=== PATIENT | female | born 1950 | race Caucasian/White ===

== ENCOUNTER 2017-04-15 15:24 | Inpatient (IN) | payer OTHER ==
[~2017-04-15] VITALS: Ht 162.6 cm; Wt 54.6 kg
--- NOTE | ~2017-04-15 | DS ---
Unit #: [id number] #: [id number] Patient: LUDIVINA MOCTEZUMA [id number] [address] [address] [id number] I MR#: [id number] NAME: LUDIVINA MOCTEZUMA ROOM: 319 Age: 66 Sex: F Admission Date: 04/15/2017 : 1950 Discharge Date: 04/20/2017 Attending Physician: Nicole Mancera M.D. Primary Care Physician: Helga Naranjo M.D. DISCHARGE SUMMARY PRINCIPAL DISCHARGE DIAGNOSES 1. Puybn-rm-ffrkxld diastolic congestive heart failure. Left ventricular ejection fraction 60%. 2. Chronic kidney disease stage 3. 3. 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 4. Hypertension, stable. 5. History of CVA. 6. History of depression. 7. Dementia. HOSPITAL COURSE This is a 66-year-old female with a history of multiple medical problems, admitted on 04/15/2017 with a chief complaint of increasing shortness of air, dyspnea, increasing left pleural effusions and herpes zoster. Chest x-ray showed left pleural effusion with a BNP above 200. She had some hypoxia with O2 saturation of 89%. The patient was jayme by the land survey technician and treated with the diuretics. She underwent the thoracocentesis and more than 500 cc of pleural fluid was drained. She has clinically improved and has been cleared by cardiology for discharge home. DISCHARGE CONDITION Stable. CONSULTANTS Cardiology, Dr. Barboza and Dr. Crowley. DISCHARGE MEDICATIONS 1. Zoloft 100 mg daily. 2. Amlodipine 10 mg daily. 3. Aricept 5 mg daily at bedtime. 4. Bumex 1 mg b.i.d. 5. Hydralazine 150 t.i.d. 6. Minoxidil 7.5 mg b.i.d. 7. Aspirin daily. 8. Isosorbide 60 mg p.o. every morning. 9. Home oxygen 2 liters per nasal cannula. 10. Famvir 500 mg b.i.d. DIAGNOSTIC DATA LABORATORY: On admission, creatinine 2.1. DISPOSITION Unit #: [id number] #: [id number] Patient: RHIANNA,LUDIVINA Home. Dictated by... Radha Acuña/iza TD: 04/21/2017 10:25 JOB #: [id number] DISCHARGE SUMMARY Page 1 of 1 X Crystal Calvert MD X DISCHARGE SUMMARY
--- NOTE | ~2017-04-15 | EKG ---
PATIENT: LUDIVINA MOCTEZUMA UNIT #: [id number] Ventricular Rate: 67 BPM Atrial Rate: 64 BPM QRS Duration: 84 ms Q-T Interval: 394 ms QTC Calculation(Bezet): 416 ms Calculated R [place]: -6 degrees Calculated T [place]: 133 degrees Diagnosis Line: Junctional rhythm Diagnosis Line: Nonspecific T wave abnormality Diagnosis Line: Abnormal ECG Diagnosis Line: When compared with ECG of 18-SEP-2016 14:22, Diagnosis Line: Junctional rhythm has replaced Normal sinus rhythm Diagnosis Line: Nonspecific T wave abnormality no longer evident Diagnosis Line: in Anterior leads Diagnosis Line: Confirmed by HILARY LIRA MD ([id number]) on 04/16/2017 Diagnosis Line: 12:10:26 AM INTERPRETING MD: SORAYA LOTT
--- NOTE | ~2017-04-15 | HP ---
Unit #: [id number] #: [id number] Patient: LUDIVINA MOCTEZUMA [id number] [address] [place], [place] [address] [id number] I MR#: [id number] NAME: LUDIVINA MOCTEZUMA ROOM: 319 Age: 66 Sex: F Admission Date: 04/15/2017 : 1950 Attending Physician: Lanette Oliva M.D. Primary Care Physician: Helga Naranjo M.D. HISTORY AND PHYSICAL CHIEF COMPLAINT Dyspnea on exertion with increasing left pleural effusion, herpes zoster. HISTORY This pleasant 66-year-old female with hypertension, previous CVA, is admitted for dyspnea on exertion. Family states that the patient has been experiencing dyspnea on exertion for the past three days, associated with increasing pedal edema. Has had similar episodes in the past secondary to apparent fluid overload. The patient denies significant cough with the above, fever, sweats and chills. She did experience some recent back pain and has a rash over the right thoracic dermatome. On examination she has evidence of herpes zoster, along with a right thoracic dermatome. Chest x-ray shows a left pleural effusion, with a BNP of about 200. The patient denies chest pain with the above. Her O2 saturation was 89% in the ER and oxygen was placed. PAST MEDICAL HISTORY 1. Essential hypertension with previous admissions for malignant hypertension. 2. Diet controlled AODM. 3. Hyperlipidemia. 4. Chronic kidney disease with a baseline creatinine of about 1.9, followed by Dr. Guevara. 5. 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 Patient has associated right-sided weakness and some memory loss. 6. Previous admissions to this facility for bradycardia, syncope. Bradycardia was in part related to previous clonidine. Patient was noted to have some pauses at that time. Also short runs of paroxysmal supraventricular tachycardia. Previous echo 06/2014 ejection fraction 55% with LVH, mild MR and TR. Lexiscan Cardiolite stress test 06/2014 was negative for ischemia. 7. Depression. 8. GERD. 9. Right shoulder surgery. 10. Hysterectomy for cervical cancer. ALLERGIES No known drug allergies. HOME MEDICATIONS Unit #: [id number] #: [id number] Patient: LUDIVINA MOCTEZUMA Zoloft 100 mg daily; Norvasc 10 mg daily; Aricept 5 mg daily; Bumex 1 mg b.i.d.; hydralazine 150 mg t.i.d.; minoxidil 5 mg b.i.d.; aspirin 81 mg daily; Protonix 40 mg daily; Imdur 60 mg daily. FAMILY HISTORY Lung cancer, CAD. SOCIAL HISTORY The patient lives with her brother and [id number]. Ambulates with a cane. Lifelong nonsmoker. Does not drink alcohol. REVIEW OF SYSTEMS Notable for some shortness of breath, previous stroke, hypertension, diet controlled diabetes, above mentioned surgeries, recent rash over the right back. All other systems were reviewed and otherwise negative. PHYSICAL EXAMINATION GENERAL: Very pleasant 66-year-old female currently in no acute distress. VITAL SIGNS: Temperature 98.3, pulse 74, respirations 18, O2 saturation was as low as 89% on room air. Initial blood pressure 183/78. Current blood pressure is 194/100. Pulse 74. HEENT: Eyes - PERRLA, extraocular muscles are intact. Pharynx is benign. NECK: Supple without adenopathy or thyromegaly. Elevated JVD noted. CHEST: Actually fairly clear. CARDIAC: Normal S1 and S2. Very soft systolic murmur heard upper sternal borders. ABDOMEN: Bowel sounds are present. No hepatosplenomegaly, tenderness or masses. EXTREMITIES: With 2+ bilateral pedal edema. Pedal pulses are present. There is a hammertoe second toe on the right with abrasion on the top but otherwise no ulcers on the feet. SKIN: Reveals herpes zoster along the right thoracic dermatome. NEUROLOGIC: Patient is awake, alert. She is very oriented. Cranial nerves are intact. Equal strength throughout. DIAGNOSTIC STUDIES ADMISSION LABS: Hematocrit is 34, which is improved. MCV 79, normal white count and platelet count. SMA 12 - glucose 114, BUN 33, creatinine was 1.9 in September as well. Protein is 9.1. BNP 197. Cardiac markers are negative. IMAGING STUDIES: Chest x-ray - new left lower lobe, left chest pleural effusion, possible infiltrate. X-ray of the right foot, soft tissue swelling, DJD of the second toe right foot. CARDIOLOGY STUDIES: EKG - sinus rhythm, rate 67, nonspecific ST wave flattening. ASSESSMENT 1. Dyspnea on exertion with history of fluid overload, patient now presents with new left pleural effusion. 2. Her previous echo 06/2014, mild MR, mild TR, ejection fraction 55% with LVH. 3. Accelerated hypertension. 4. Right-sided herpes zoster. 5. Previous cerebrovascular accident with some memory issues. Unit #: [id number] #: [id number] Patient: LUDIVINA MOCTEZUMA 6. Diet control adult onset diabetes mellitus. 7. Gastroesophageal reflux disease. 8. Stable chronic kidney disease. 9. Anemia secondary to chronic kidney disease. PLANS 1. Will give patient her blood pressure medicines now and monitor blood pressure. 2. IV Bumex, cardiology to see and repeat cardiac enzymes. 3. CT scan of the chest in the morning. If pleural effusion is not responding to diuretics, may need a thoracentesis with analysis of fluid. 4. Start Famvir. 5. DVT prophylaxis. Dictated by Radha Wolfe/ts TD: 04/16/2017 05:00 JOB #: [id number] HISTORY AND PHYSICAL Page 1 of 1 X Lanette Oliva MD HISTORY AND PHYSICAL
--- NOTE | ~2017-04-15 | US77 ---
[facility] A Service of [facility] RADIOLOGY TEXT RESULTS PATIENT: LUDIVINA MOCTEZUMA LOCATION: [facility] : [birth year] UNIT #: [id number] AGE: [address]: Nicole Mancera MD SEX: F ORDER DR: [id number] [facility] [address]. [place], [place] [address] [id number] I MR#: [id number] Acc #: [id number] NAME: LUDIVINA MOCTEZUMA : 1950 SEX: F STUDY DATE/TIME: 04/18/2017 16:43 UNIT: [address] ROOM: [facility] STUDY DESCRIPTION: US Kidney Bilateral Complete Attending Physician: Nicole Mancera M.D. Ordering Physician: Naima Marx A.P.R.N. Primary Care Physician: Helga Naranjo M.D. MEDICAL IMAGING REPORT This report is preliminary unless electronic signature is present EXAM Renal ultrasound. INDICATIONS Recurrent urinary tract infection. Hypertension. Diabetes. Renal mass. TECHNIQUE Renal ultrasound. COMPARISON CT chest dated 04/16/2017. FINDINGS The right kidney means 8.5 cm. There is increased echogenicity of the renal cortex consistent with chronic medical renal disease. There is a complex cyst off the mid to lower pole right kidney measuring up to 2.6 cm. This has some low-level internal echo suggesting a proteinaceous or hemorrhagic cyst. There is no hydronephrosis. The left kidney measures 9.3 cm. The lesion in the superior pole of the right kidney identified on the recent CT scan is not well identified. There is a small cyst in the lower pole left kidney. There is generalized increased echogenicity of the renal cortex suggesting chronic medical renal disease. No hydronephrosis. The bladder is unremarkable. There are bilateral pleural effusions. IMPRESSION 1. Chronic medical renal disease. 2. Cystic mass in the mid to lower right kidney with low-level internal [facility] A Service of [facility] RADIOLOGY TEXT RESULTS PATIENT: LUDIVINA MOCTEZUMA LOCATION: [facility] : [birth year] UNIT #: [id number] AGE: [address]: Nicole Mancera MD SEX: F ORDER DR: ivett. This suggests a proteinaceous or hemorrhagic cyst. I would recommend this be followed with a renal protocol CT or MRI to confirm. 3. The partially exophytic mass described on the recent CT scan of the chest is not clearly identified on this renal ultrasound. This would also be better evaluated with a renal protocol CT or MRI. 4. No hydronephrosis. Dictated by... Bishnu Soto M.D. THIS IS AN ELECTRONICALLY VERIFIED REPORT Bishnu Soto M.D. at 04/19/2017 3:54 PM TONYA/nikolay TD: 04/19/2017 12:06 JOB #: [id number] MEDICAL IMAGING REPORT Page 1 of 1 COPY
--- NOTE | ~2017-04-15 | CR71 ---
[facility] A Service of [facility] RADIOLOGY TEXT RESULTS PATIENT: LUDIVINA MOCTEZUMA LOCATION: [facility] 319-01 : [birth year] UNIT #: [id number] AGE: [address]: Nicole Mancera MD SEX: F ORDER DR: [id number] [facility] [address]. [place], [place] [address] [id number] I MR#: [id number] Acc #: [id number] NAME: LUDIVINA MOCTEZUMA : 1950 SEX: F STUDY DATE/TIME: 04/18/2017 11:45 UNIT: [address] ROOM: [facility] STUDY DESCRIPTION: CR Chest Single View Attending Physician: Nicole Mancera M.D. Ordering Physician: Hamzah Bowen M.D. Primary Care Physician: Helga Naranjo M.D. MEDICAL IMAGING REPORT This report is preliminary unless electronic signature is present EXAM Portable chest. HISTORY Post thoracentesis, left-sided. Shortness of air. Onset today. COMPARISON 04/18/2017 FINDINGS AP portable view of the chest demonstrates improved left-sided lung volumes following thoracentesis. There is continued loss of the left hemidiaphragm and blunting of the left CP angle suggesting some residual fluid. Interface is seen overlying the left upper chest, probably represents a skin, underlying pleural reflection considered less likely as there appear to be lung markings extending beyond the expected projection. Repeat radiograph may be warranted to exclude underlying pneumothorax. Mild pulmonary vascular congestion. Continued cardiomegaly and small right pleural effusion. Arthroplasty changes noted right shoulder. Dictated by... Elizabeth Talbert M.D. THIS IS AN ELECTRONICALLY VERIFIED REPORT Elizabeth Talbert M.D. at 04/21/2017 4:50 PM HAYLEE/yaz TD: 04/18/2017 17:21 JOB #: [id number] MEDICAL IMAGING REPORT [facility] A Service of [facility] RADIOLOGY TEXT RESULTS PATIENT: LUDIVINA MOCTEZUMA LOCATION: A 319-01 : [birth year] UNIT #: [id number] AGE: [address]: Nicole Mancera MD SEX: F ORDER DR: Page 1 of 1 COPY
--- NOTE | ~2017-04-15 | EKG ---
PATIENT: LUDIVINA MOCTEZUMA UNIT #: [id number] Ventricular Rate: 73 BPM Atrial Rate: 70 BPM QRS Duration: 84 ms Q-T Interval: 366 ms QTC Calculation(Bezet): 403 ms Calculated T [place]: 132 degrees Diagnosis Line: Normal sinus rhythm with frequent Premature atrial Diagnosis Line: complexes Diagnosis Line: Nonspecific T wave abnormality , probably Diagnosis Line: digitalis effect Diagnosis Line: Abnormal ECG Diagnosis Line: When compared with ECG of 15-APR-2017 18:25, Diagnosis Line: No significant change was found Diagnosis Line: Confirmed by HILARY LIRA MD ([id number]) on 04/17/2017 Diagnosis Line: 7:19:57 PM INTERPRETING MD: SORAYA LOTT
--- NOTE | ~2017-04-15 | CR72 ---
[facility] A Service of [facility] RADIOLOGY TEXT RESULTS PATIENT: LUDIVINA MOCTEZUMA LOCATION: [facility] 319-01 : [birth year] UNIT #: [id number] AGE: [address]: Nicole Mancera MD SEX: F ORDER DR: [id number] [facility] [address] [place], [place] [address] [id number] I MR#: [id number] Acc #: [id number] NAME: LUDIVINA MOCTEZUMA : 1950 SEX: F STUDY DATE/TIME: 04/15/2017 18:25 [facility] STUDY DESCRIPTION: CR Chest Single View Portable Attending Physician: Lanette Oliva M.D. Ordering Physician: Juan Singh D.O. Primary Care Physician: Helga Naranjo M.D. MEDICAL IMAGING REPORT This report is preliminary unless electronic signature is present EXAM Single view of the chest dated 04/15/17. COMPARISON Chest, 2 views, dated 11/13/16. HISTORY Shortness of air for 5 days, history of cervical cancer. High blood pressure and diabetes with CHF. FINDINGS Frontal view of the chest was obtained. Opacities noted in the left lower to mid chest suggestive of pleural effusion with underlying infiltrates. It is new when compared to the prior study. Previously noted right-sided pleural effusion has improved, but there is still patchy opacity extending from the region of the right hilum to the right lower lung zone suggestive of infiltrate and alveolar disease. Followup is suggested to ensure complete resolution and to exclude underlying mass. No new pneumothorax. Postoperative changes are noted in the right shoulder with hardware. Dictated by... Manny Castro M.D. THIS IS AN ELECTRONICALLY VERIFIED REPORT Manny Castro M.D. at 04/16/2017 3:28 PM CPR/pc TD: 04/16/2017 06:57 JOB #: [id number] [facility] A Service of [facility] RADIOLOGY TEXT RESULTS PATIENT: LUDIVINA MOCTEZUMA LOCATION: [facility] 319-01 : [birth year] UNIT #: [id number] AGE: [address]: Nicole Mancera MD SEX: F ORDER DR: MEDICAL IMAGING REPORT Page 1 of 1 COPY
--- NOTE | ~2017-04-15 | CT57 ---
[facility] A Service of [facility] RADIOLOGY TEXT RESULTS PATIENT: LUDIVINA MOCTEZUMA LOCATION: [facility] 319-01 : [birth year] UNIT #: [id number] AGE: [address]: Nicole Mancera MD SEX: F ORDER DR: [id number] [facility] [address] [place], [place] [address] [id number] I MR#: [id number] Acc #: [id number] NAME: LUDIVINA MOCTEZUMA : 1950 SEX: F STUDY DATE/TIME: 04/16/2017 0754 UNIT: [address] ROOM: [facility] STUDY DESCRIPTION: CT Chest Wo Cont Attending Physician: Nicole Mancera M.D. Ordering Physician: Lanette Oliva M.D. Primary Care Physician: Helga Naranjo M.D. MEDICAL IMAGING REPORT This report is preliminary unless electronic signature is present EXAM CT chest without contrast, 04/16/2017, 0754 hours. CLINICAL HISTORY Shortness of air for 3 days. Pleural effusion for [address] 12/25/2014 and chest x-ray 04/15/2017. TECHNIQUE Helical noncontrasted images were obtained from the thoracic inlet through the adrenal glands. Sagittal and coronal reconstructions were performed. Total exam DLP 370 mGy-cm. This CT exam was performed with one or more of the following radiation dose reduction techniques: automatic exposure control, adjustment of mA and/or kV according to patient size, and iterative reconstruction. FINDINGS Images through the thoracic inlet are degraded by streak artifact from hardware at the right shoulder. No definite thyroid lesion is seen. There are multiple small bilateral axillary nodes present increased from the prior exam. Images through the chest demonstrate some motion artifact. There is trace pericardial effusion, moderate bilateral pleural effusions which are new from CT 12/25/2014. Patient did have right pleural effusion on chest x-ray 11/13/2016 and bilateral effusions on chest x-ray 04/15/2017. There is no definite pathologic adenopathy although multiple small nodes are seen which are likely reactive. The lungs demonstrate an element of underlying emphysema without large blebs or bullae. There is airspace density with air bronchogram in the STS. [facility] A Service of [facility] RADIOLOGY TEXT RESULTS PATIENT: LUDIVINA MOCTEZUMA LOCATION: [facility] 319-01 : [birth year] UNIT #: [id number] AGE: [address]: Nicole Mancera MD SEX: F ORDER DR: right middle lobe and the right lower lobe which could represent atelectasis or pneumonia. There is dense consolidation of the left lower lobe with air bronchograms adjacent to the pleural effusion. Again, this could represent pneumonia or atelectasis. There is minimal involvement of the lingular segment of the left upper lobe. Limited views through the upper abdomen demonstrate no discrete liver or adrenal lesion. There is a heterogeneous lesion in the upper pole left kidney which is not clearly a simple cyst. This measures up to 1.9 cm with density measurement of 41 Hounsfield units while the adjacent normal noncontrasted renal parenchyma measures 26 Hounsfield units. This is possibly a hyperdense cyst or a solid very cellular mass. The size is similar to 12/25/2014, however, the density has increased. Consider followup renal ultrasound due to the change in appearance. IMPRESSION 1. There are moderate bilateral pleural effusions, left greater than right. The finding on the left is new compared to chest x-ray 11/13/2016. The finding on the right is similar to 11/13/2016. There is patchy airspace change in the right midlung and right lung base with dense airspace change in the left lower lobe with minimal involvement of the lingular segment left upper lobe. These findings could represent multifocal pneumonia or atelectasis. 2. There are multiple small lymph nodes in the right greater than left axilla and in the mediastinum. These are not pathologically enlarged but are increased compared to prior CT from 2014. Benign reactive nodes are favored. 3. There is a 1.9 cm lesion in the upper pole left kidney similar in size to prior CT from 2014, however, the density is increased of 41 Hounsfield units. This could represent a hemorrhagic or proteinaceous cyst. A small renal cell carcinoma cannot be excluded. I would suggest reassessment with a renal ultrasound as the next first step. Dictated by... Altagracia Sr M.D. THIS IS AN ELECTRONICALLY VERIFIED REPORT Altagracia Sr M.D. at 04/16/2017 8:26 PM ELIZABETH/yaz TD: 04/16/2017 14:30 JOB #: [id number] MEDICAL IMAGING REPORT Page 1 of 1 COPY
--- NOTE | ~2017-04-15 | CO ---
Unit #: [id number] #: [id number] Patient: LUDIVINA MOCTEZUMA [id number] [address] [place], [place] [address] [id number] I MR#: [id number] NAME: LUDIVINA MOCTEZUMA ROOM: 319 Age: 66 Sex: F Admission Date: 04/15/2017 : 1950 Attending Physician: Nicole Mancera M.D. Primary Care Physician: Helga Seymour M.D. CONSULTATION REPORT JOB NOTE: CC: DR. SEYMOUR. REASON FOR CONSULTATION Dyspnea. HISTORY OF PRESENT ILLNESS This is a 66-year-old white female, who is well known to Dr. Crowley, who has a history of hypertension, hyperlipidemia, and diabetes. She is known to have chronic kidney disease, her baseline creatinine is 1.9. The patient comes to the emergency room with a complaint of shortness of breath and lower extremity edema apparently for the past 2 days. She is a poor historian, and information has been obtained from the patient and her brother, who is at bedside. She reports dyspnea that mostly occurs while she exercise. Her brother says she walks around the house unassisted for exercise on a daily basis. He noted her to be short of breath. She denies paroxysmal nocturnal dyspnea or orthopnea. No fever or chills. No cough. She came to the emergency room for evaluation, where her BNP was elevated at 197. Chest x-ray shows left lower and mid pleural effusion with underlying infiltrate. She was hypertensive on admission, where her blood pressure was 198/72 mmHg. She was treated with hydralazine, minoxidil and started on intravenous Bumex. She denies any symptoms of angina. Reports occasional palpitations. No dizziness. Troponin initially mildly elevated at 0.05. There were no acute EKG changes. The patient is unable to tolerate beta-trudy, because of significant bradycardia. She has not been on AZIZA inhibitor or ARB, because of worsening renal function. PAST MEDICAL HISTORY 1. 2D echocardiogram on 07/28/2016 showed an ejection fraction of 60% to 65% with trace mitral regurgitation, trace tricuspid regurgitation. There was a pseudonormalization with grade 2 diastolic dysfunction. 2. Lexiscan Cardiolite stress test on 06/30/2014 showed an ejection fraction of 57% with no ischemia or infarct. 3. Hypertension. 4. Hyperlipidemia. 5. Diabetes mellitus, type 2. 6. 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 (No thrombus/PFO on TRU done at [facility]). 7. Dementia. 8. Cervical cancer. 9. Nonsmoker. 10. Chronic kidney disease. PAST SURGICAL HISTORY Unit #: [id number] #: [id number] Patient: LUDIVINA MOCTEZUMA 1. Hysterectomy. 2. Right shoulder surgery. SOCIAL HISTORY The patient lives with her brother, who assists her with her care. She has never smoked. Exercises on a regular basis. No illicit drug or alcohol use. FAMILY HISTORY Brother has coronary artery disease with history of stent placement at age 65. ALLERGIES No known drug allergies. HOME MEDICATIONS Zoloft 100 mg daily, Norvasc 10 mg daily, Aricept 5 mg q.h.s., Bumex 2 mg daily, hydralazine 150 mg t.i.d., minoxidil 5 mg b.i.d., aspirin 80 mg daily, Imdur 60 mg daily. REVIEW OF SYSTEMS CONSTITUTIONAL: Negative for fever or chills. Has no weight gain or weight loss. Denies fatigue or weakness. HEENT: No headache, hearing or vision changes, or difficulty with swallowing. No dizziness. CARDIOVASCULAR: Has no symptoms of angina. Reports occasional palpitations. No paroxysmal nocturnal dyspnea or orthopnea. No syncope or near syncope. RESPIRATORY: Positive for dyspnea that mostly occurs on exertion. Denies cough or hemoptysis. GASTROINTESTINAL: No abdominal pain, nausea, or vomiting. No constipation or melena. EXTREMITIES: Positive for lower extremity edema. PHYSICAL EXAMINATION VITAL SIGNS: Blood pressure 192/80, heart rate 82, temperature 98.7. BMI of 22. GENERAL: This is a very pleasant 66-year-old white female, who is in no acute distress. NEUROLOGIC: She is awake, alert, and oriented. Noted for forgetfulness. There is mild left-sided weakness. NECK: Trachea is midline. No thyromegaly or lymphadenopathy. No jugular venous distention. HEART: S1 and S2. Heart sounds are normal. No murmurs. No rubs or clicks. Regular rate and rhythm with occasional ectopic beat. LUNGS: With diminished breath sounds at both lung bases, left greater than the right. ABDOMEN: Soft and nontender with bowel sounds present. No organomegaly. EXTREMITIES: With palpable pedal pulses. No leg edema. SKIN: Warm and dry. DIAGNOSTIC STUDIES LABORATORY RESULTS: Glucose 106, BUN 31, creatinine 1.9, sodium 138, potassium 3.4. CK total 106, MB 3.0, MB index 2.8, troponin less than 0.05. BNP 197. White count is 4.9, hemoglobin is 9.6, hematocrit 29.7, and platelet count 308. IMAGING STUDIES: Chest x-ray shows left lower to mid chest opaque density Unit #: [id number] #: [id number] Patient: LUDIVINA MOCTEZUMA suggestive of pleural effusion with underlying infiltrates. There are some patchy opaque densities in the right hilum into the right lower lobe suggestive of infiltrate or alveolar disease. CARDIOVASCULAR STUDIES: EKG shows junctional rhythm with premature atrial complexes, rate of 67 beats per minute with nonspecific ST-wave abnormality. IMPRESSION 1. Left pleural effusion. 2. Hypertensive urgency. 3. Acute on chronic diastolic heart failure. 4. Hyperlipidemia. 5. Diabetes mellitus, type 2. 6. History of cerebrovascular accident. 7. Chronic kidney disease. PLAN 1. Cardiology was consulted for evaluation of dyspnea. We will continue to gently diurese the patient with IV diuretics. 2. We will optimize blood pressure medications. 3. No further cardiac workup is needed at this time. Thank you for allowing us to assist with this patient's care. Dictated by... Alma Minor/bradley TD: 04/17/2017 05:40 JOB #: [id number] CONSULTATION REPORT Page 1 of 1 X Abdulaziz Cooper APRN X CONSULTATION REPORT
--- NOTE | ~2017-04-15 | XA203 ---
[facility] A Service of [facility] & [facility] / [facility] RADIOLOGY TEXT RESULTS PATIENT: LUDIVINA MOCTEZUMA LOCATION: [facility] 319-01 : [birth year] UNIT #: [id number] AGE: [address]: Nicole Mancera MD SEX: F ORDER DR: [id number] [place] [id number] [facility]. [place], [place] [address] [id number] I MR#: [id number] Acc #: [id number] NAME: LUDIVINA MOCTEZUMA : 1950 SEX: F STUDY DATE/TIME: 04/18/2017 11:12 UNIT: [address] ROOM: [facility] STUDY DESCRIPTION: XA Thoracentesis Attending Physician: Nicole Mancera M.D. Ordering Physician: Kristine Crowley M.D. Primary Care Physician: Helga Naranjo M.D. MEDICAL IMAGING REPORT This report is preliminary unless electronic signature is present EXAM Ultrasound-guided thoracentesis HISTORY Pleural effusions bilaterally of uncertain etiology. TECHNIQUE The procedure was explained to the patient including risks, benefits and complications. Informed consent was obtained and a formal time-out procedure was utilized. Prior to the procedure an appropriate site for thoracentesis was marked with ultrasound. The skin was prepped and draped in the usual sterile fashion. Following local anesthesia with 1% lidocaine a sheath needle was placed into the pleural fluid collection. A total of 800 mL of fluid was aspirated. Some of the fluid was sent for laboratory analysis as requested by the ordering service. The patient tolerated the procedure well. A chest x-ray will be obtained following the procedure to evaluate for pneumothorax with results reported separately. IMPRESSION Technically successful left thoracentesis. 800 mL of fluid was obtained. Dictated by... Hamzah Bowen M.D. THIS IS AN ELECTRONICALLY VERIFIED REPORT Hamzah Bowen M.D. at 04/19/2017 11:30 AM RORO/rusty TD: 04/18/2017 22:24 JOB #: [id number] MEDICAL IMAGING REPORT [facility] A Service of [facility] & [facility] / [facility] RADIOLOGY TEXT RESULTS PATIENT: LUDIVINA MOCTEZUMA LOCATION: [facility] 319-01 : [birth year] UNIT #: [id number] AGE: [address]: Nicole Mancera MD SEX: F ORDER DR: Page 1 of 1 COPY
--- NOTE | ~2017-04-15 | CR255 ---
[facility]. [facility] A Service of [facility] & [facility] RADIOLOGY TEXT RESULTS PATIENT: LUDIVINA MOCTEZUMA LOCATION: [facility] 319-01 : [birth year] UNIT #: [id number] AGE: [address]: Nicole Mancera MD SEX: F ORDER DR: [id number] [facility] [address] [place], [place] [address] [id number] I MR#: [id number] Acc #: [id number] NAME: LUDIVINA MOCTEZUMA : 1950 SEX: F STUDY DATE/TIME: 04/15/2017 18:38 UNIT: [address] ROOM: [facility] STUDY DESCRIPTION: CR Toe 2 Views 2Nd Rt Attending Physician: Lanette Oliva M.D. Ordering Physician: Juan Singh D.O. Primary Care Physician: Helga Naranjo M.D. MEDICAL IMAGING REPORT This report is preliminary unless electronic signature is present EXAM Right second toe, 04/15/2017, 1838 hours. CLINICAL HISTORY Patient complains of pain, redness and infection or in the toe today. No reported injury. COMPARISON Right foot, 07/09/2014. FINDINGS AP, lateral and oblique views demonstrate soft tissue swelling of the second toe. There is mild degenerative change at the distal interphalangeal joint similar to 2013. There is no fracture, dislocation, osteomyelitis or foreign body. IMPRESSION Soft tissue swelling of the second toe with stable degenerative change at the distal interphalangeal joint as compared to 07/09/2014. There is no fracture or evidence of osteomyelitis. No foreign body seen. Dictated by... Altagracia Sr M.D. THIS IS AN ELECTRONICALLY VERIFIED REPORT Altagracia Sr M.D. at 04/16/2017 9:14 AM Vanessa TD: 04/16/2017 07:33 JOB #: [id number] MEDICAL IMAGING REPORT Page 1 of 1 COPY
--- NOTE | ~2017-04-15 | CR63 ---
[facility] A Service of [facility] RADIOLOGY TEXT RESULTS PATIENT: LUDIVINA MOCTEZUMA LOCATION: [facility] 319 : [birth year] UNIT #: [id number] AGE: [address]: Nicole Mancera MD SEX: F ORDER DR: [id number] [facility] [address]. [place], [place] [address] [id number] I MR#: [id number] Acc #: [id number] NAME: LUDIVINA MOCTEZUMA : 1950 SEX: F STUDY DATE/TIME: 04/18/2017 7:24 UNIT: [address] ROOM: [facility] STUDY DESCRIPTION: CR Chest 2 View Attending Physician: Nicole Mancera M.D. Ordering Physician: Kristine Crowley M.D. Primary Care Physician: Helga Naranjo M.D. MEDICAL IMAGING REPORT This report is preliminary unless electronic signature is present EXAM Two views chest, 04/18/2017. HISTORY Short of air, pleural effusion, 1 week duration. TECHNIQUE AP radiograph of the chest is presented. COMPARISON 04/15/2017 FINDINGS Right shoulder arthroplasty unchanged. No acute-appearing bony abnormality. Stable cardiac enlargement. Underlying pulmonary vascular congestion unchanged. Small to moderate right pleural effusion stable to slightly increased in volume. Large left effusion unchanged. Airspace disease in the [id number] lung zones bilaterally, left greater than right, probably involves components of atelectasis in either mid to lower lung zone edema or bilateral pneumonia. There is no pneumothorax. Continued followup to resolution recommended. Dictated by... Sid Jackson M.D. THIS IS AN ELECTRONICALLY VERIFIED REPORT Sid Jackson M.D. at 04/18/2017 6:15 PM MODESTO/yaz TD: 04/18/2017 12:29 JOB #: [id number] [facility] A Service of [facility] RADIOLOGY TEXT RESULTS PATIENT: LUDIVINA MOCTEZUMA LOCATION: [facility] 319- : [birth year] UNIT #: [id number] AGE: [address]: Nicole Mancera MD SEX: F ORDER DR: MEDICAL IMAGING REPORT Page 1 of 1 COPY
[~2017-04-15 15:24] MED LIST: ALBUTEROL17 GM INH; ALPRAZOLAM0.25 MG PO; AMLODIPINE BESYL5 MG PO; ASPIRIN81 MG PO; BAYER ASPIRIN325 M1 PO; CHLORTHALIDONE25 MG PO; CLARITHROMYCIN500 MG PO; CLONIDINE HCL0.1 MG PO; CLONIDINE HCL0.3 MG PO; EXELON1 PATCH .2 EXT; HYDRALAZINE HC100 MG PO; HYDRALAZINE HCL50 MG PO; ISOSORBIDE DINI10 MG PO; LEVAQUIN250 MG PO; LISINOPRIL PO; LO-DOSE ASPIRIN81 M1 PO; METFORMIN HCL500 M1 PO; MINOXIDIL2.5 MG PO; PANTOPRAZOLE SO40 MG PO; PRINIVIL40 MG PO; PROTONIX PO; SERTRALINE HCL50 MG PO; TESSALON PERLE100 M1 PO; VIBRAMYCIN100 M1 PO; ZESTRIL40 MG PO; ZOFRAN PO
[2017-04-15 18:37] LABS: BASOPHIL# 0.1 X10e3 (0-0.3); BASOPHIL% 1.3 % (0-2.5); EOSINOPHIL# 0.4 X10e3 (0-0.7); EOSINOPHIL% 6.4 % (0.0-7.0); HEMOGLOBIN 11.1 gm/dL (12.0-16.0); LYMPHOCYTE% 17.7 % (17.0-45.0); MEAN CELL VOLUME 79.5 FL (83-96); MEAN CORPUSCULAR HGB CONC 32.7 g/dL (30-36); MEAN PLATELET VOLUME 8.6 FL (6.5-11.5); MONOCYTE# 0.3 X10e3 (0-1.0); MONOCYTE% 5.7 % (3.0-12.0); NEUTROPHIL# 4.1 X10e3 (1.5-7.1); NEUTROPHIL% 68.9 % (40-75); PLATELET COUNT 331 X10e3 (140-420); RED BLOOD COUNT 4.28 X10e (3.90-5.30); RED CELL DISTRIBUTION WIDTH 20.6 % (11.0-15.5); WHITE BLOOD COUNT 5.9 X10e3 (4.0-10.5)
[2017-04-15 18:38] LABS: DIFF IND NO
[2017-04-15 18:51] LABS: POC - CKMB 4.5 ng/mL (0.0-7.9); POC - TROPONIN <0.05 ng/mL (<=0.05)
[2017-04-15 19:03] LABS: ALBUMIN SERUM 4.1 g/dL (3.5-5.0); BILIRUBIN, DIRECT 0.2 mg/dL (0.0-0.2); BILIRUBIN,INDIRECT 0.3 mg/dL (0.0-0.9); BILIRUBIN,TOTAL 0.5 mg/dL (0.2-2.0); BUN/CREATININE RATIO 17.36; CALCIUM SERUM 9.3 mg/dL (8.4-10.2); CREATININE SERUM 1.9 mg/dL (0.6-1.4); GLOM FILT RATE Estimated 26.8 mL/min (>60); POTASSIUM 4.3 mmol/L (3.5-5.1); PROTEIN TOTAL SERUM 9.1 g/dL (6.0-8.3)
[2017-04-15 21:01] LABS: POC - CKMB 4.1 ng/mL (0.0-7.9); POC - TROPONIN <0.05 ng/mL (<=0.05)
[2017-04-15] MEDS ORDERED: ZOLOFT100 MG PO (22:21)
[2017-04-15] MEDS ORDERED: ARICEPT5 M1 PO (22:22)
[2017-04-15] MEDS ORDERED: NORVASC10 MG PO (22:22)
[2017-04-15] MEDS ORDERED: BUMEX PO (22:23)
[2017-04-15] MEDS ORDERED: MINOXIDIL PO (22:25)
[2017-04-15] MEDS ORDERED: APRESOLINE PO (22:25)
[2017-04-15] MEDS ORDERED: ASPIRIN81 MG PO (22:26)
[2017-04-15] MEDS ORDERED: IMDUR-ER60 MG PO (22:27)
[2017-04-16 05:05] LABS: HEMATOCRIT 29.7 % (35.0-45.0); HEMOGLOBIN 9.6 gm/dL (12.0-16.0); MEAN CELL VOLUME 79.9 FL (83-96); MEAN CORPUSCULAR HEMOGLOBIN 25.7 PG (28-34); MEAN CORPUSCULAR HGB CONC 32.2 g/dL (30-36); MEAN PLATELET VOLUME 8.3 FL (6.5-11.5); RED BLOOD COUNT 3.72 X10e (3.90-5.30); RED CELL DISTRIBUTION WIDTH 20.6 % (11.0-15.5); WHITE BLOOD COUNT 4.9 X10e3 (4.0-10.5)
[2017-04-16 05:23] LABS: INR 1.1; PARTIAL THROMBOPLASTIN TIME 30.4 SECONDS (23.5-31.3); PROTHROMBIN TIME (PATIENT) 11.8 SECONDS (10.0-11.7)
[2017-04-16 06:13] LABS: BUN/CREATININE RATIO 16.31; CALCIUM SERUM 8.5 mg/dL (8.4-10.2); CREATININE SERUM 1.9 mg/dL (0.6-1.4); GLOM FILT RATE Estimated 26.8 mL/min (>60); POTASSIUM 3.4 mmol/L (3.5-5.1)
[2017-04-16 06:32] LABS: %MB 2.8 % (0.0-4.0)
[2017-04-17 06:57] LABS: BUN/CREATININE RATIO 16.11; CALCIUM SERUM 8.6 mg/dL (8.4-10.2); CREATININE SERUM 1.8 mg/dL (0.6-1.4); GLOM FILT RATE Estimated 28.6 mL/min (>60); POTASSIUM 3.5 mmol/L (3.5-5.1)
[2017-04-18 04:39] LABS: CALCIUM SERUM 8.9 mg/dL (8.4-10.2); GLOM FILT RATE Estimated 25.2 mL/min (>60); POTASSIUM 4.2 mmol/L (3.5-5.1)
[2017-04-18 05:05] LABS: URINE SOURCE CLEAN CATCH
[2017-04-18 05:10] LABS: URINE APPEARANCE CLEAR; URINE BILIRUBIN NEG (NEG); URINE BLOOD NEG (NEG); URINE COLOR YELLOW; URINE GLUCOSE NEG (NEG); URINE KETONE NEG (NEG); URINE LEUKOCYTE ESTERASE NEG (NEG); URINE NITRATE POS (NEG); URINE PROTEIN 1+ (NEG); URINE SPECIFIC GRAVITY 1.012 (1.003-1.035); URINE UROBILINOGEN 0.2 MG/DL (NEG)
[2017-04-18 05:12] LABS: URINE BACTERIA AUWI 4+ (NEGATIVE); URINE SQUAMOUS EPITHELIAL CELL NONE SEEN /[HPF]
[2017-04-18 12:19] LABS: BF TOTAL NUCLEATED CELL COUNT 687 CMM (0-100); BODY FLUID APPEARANCE HAZY; BODY FLUID RBC <10000 CMM; BODY FLUID SOURCE THORACENTESIS
[2017-04-18 16:45] LABS: URINE APPEARANCE CLOUDY; URINE BILIRUBIN NEG (NEG); URINE BLOOD NEG (NEG); URINE COLOR YELLOW; URINE GLUCOSE NEG (NEG); URINE KETONE NEG (NEG); URINE LEUKOCYTE ESTERASE 2+ (NEG); URINE NITRATE NEG (NEG); URINE PROTEIN 2+ (NEG); URINE SPECIFIC GRAVITY 1.017 (1.003-1.035); URINE UROBILINOGEN 0.2 MG/DL (NEG)
[2017-04-18 16:48] LABS: URINE BACTERIA AUWI 4+ (NEGATIVE); URINE SQUAMOUS EPITHELIAL CELL NONE SEEN /[HPF]; UWBCS1 AUWI 25-50 (0-5)
[2017-04-19 04:52] LABS: HEMATOCRIT 28.4 % (35.0-45.0); HEMOGLOBIN 9.1 gm/dL (12.0-16.0); MEAN CELL VOLUME 79.4 FL (83-96); MEAN CORPUSCULAR HEMOGLOBIN 25.4 PG (28-34); MEAN CORPUSCULAR HGB CONC 32.1 g/dL (30-36); MEAN PLATELET VOLUME 8.3 FL (6.5-11.5); RED BLOOD COUNT 3.58 X10e (3.90-5.30); RED CELL DISTRIBUTION WIDTH 20.2 % (11.0-15.5); WHITE BLOOD COUNT 4.7 X10e3 (4.0-10.5)
[2017-04-19 05:28] LABS: BUN/CREATININE RATIO 15.23; CALCIUM SERUM 8.4 mg/dL (8.4-10.2); CREATININE SERUM 2.1 mg/dL (0.6-1.4); GLOM FILT RATE Estimated 23.8 mL/min (>60); POTASSIUM 3.9 mmol/L (3.5-5.1)
[2017-04-20 06:24] LABS: BUN/CREATININE RATIO 15.23; CALCIUM SERUM 8.3 mg/dL (8.4-10.2); CREATININE SERUM 2.1 mg/dL (0.6-1.4); GLOM FILT RATE Estimated 23.8 mL/min (>60); POTASSIUM 3.5 mmol/L (3.5-5.1)
[2017-04-20] MEDS ORDERED: BUMEX2 MG PO (13:49)
[2017-04-20] MEDS ORDERED: MINOXIDIL2.5 MG PO (13:51)
[2017-04-20] MEDS ORDERED: FAMVIR500 MG PO (13:53)
[2017-06-04] MEDS ORDERED: MINOXIDIL PO (09:10)
[2017-06-04] MEDS ORDERED: APRESOLINE PO (09:11)
[2017-06-04] MEDS ORDERED: ARICEPT5 M1 PO (09:11)
[2017-06-04] MEDS ORDERED: AMLODIPINE BESY10 MG PO (09:12)
[2017-06-04] MEDS ORDERED: ASPIRIN81 MG PO (09:12)
[2017-06-04] MEDS ORDERED: SERTRALINE HCL100 M1 PO (09:12)
[2017-06-04] MEDS ORDERED: ISOSORBIDE MONO60 M1 PO (09:13)
[2017-06-04] MEDS ORDERED: PANTOPRAZOLE SO40 MG PO (09:13)
[2017-06-04] MEDS ORDERED: BUMEX1 MG PO (09:13)
== END 2017-04-20 14:45 | disposition home or self-care (01) | DRG 291 ==
LOC: CED 15:24 → CEDOF 22:00 → C3A PCU 22:00 → CED 22:33 → CEDOF 22:33 → C3A PCU 22:35 → CEDOF 22:35 → C3A PCU 23:10
PROVIDERS: Emergency Medicine; Internal Medicine; Internal Medicine Cardiovascular Disease; Nurse Practitioner
PROC: 0W9B3ZZ Drainage of Left Pleural Cavity, Percutaneous Approach (ICD-10-PCS; principal; 2017-04-18)
DX: I13.0 Hypertensive heart and chronic kidney disease with heart failure and stage 1 through stage 4 chronic kidney disease, or unspecified chronic kidney disease (principal); I50.33 Acute on chronic diastolic (congestive) heart failure; J96.91 Respiratory failure, unspecified with hypoxia; J91.8 Pleural effusion in other conditions classified elsewhere; N39.0 Urinary tract infection, site not specified; F03.90 Unspecified dementia, unspecified severity, without behavioral disturbance, psychotic disturbance, mood disturbance, and anxiety; E11.22 Type 2 diabetes mellitus with diabetic chronic kidney disease; N18.3 Chronic kidney disease, stage 3 (moderate); F32.9 Major depressive disorder, single episode, unspecified; B02.9 Zoster without complications; E78.5 Hyperlipidemia, unspecified; K21.9 Gastro-esophageal reflux disease without esophagitis; D63.1 Anemia in chronic kidney disease; I16.0 Hypertensive urgency; Z86.73 Personal history of transient ischemic attack (TIA), and cerebral infarction without residual deficits; Z90.710 Acquired absence of both cervix and uterus; Z85.41 Personal history of malignant neoplasm of cervix uteri; Z82.49 Family history of ischemic heart disease and other diseases of the circulatory system; Z80.1 Family history of malignant neoplasm of trachea, bronchus and lung; E87.6 Hypokalemia; N28.1 Cyst of kidney, acquired; B96.20 Unspecified Escherichia coli [E. coli] as the cause of diseases classified elsewhere
CPT/HCPCS: 36415; 71010; 71020; 71250; 73660; 76770; 80048; 80076; 81003; 82550; 82553; 82947; 83615; 83735; 83880; 83986; 84157; 84484; 85025; 85027; 85610; 85730; 87040; 87070; 87086; 87088; 87186; 87205; 88108; 88305; 89051; 93005; 94760; 97110; 97116; 97161; 97166; 97535; 99285; G8978-GP; G8979-GP; G8987-GO; G8988-GO; J0360; J0696; J1644